=== PATIENT | female | born 2000 | race African-American/Black ===

== ENCOUNTER 2024-08-19 18:00 | Inpatient (IN) | payer OTHER ==
[2024-08-19] MEDS: Misoprostol 100 MCG TAB VAG SCH (18:59)
[2024-08-19] MEDS ORDERED: hydrALAZINE 20 MG/ML VIAL SLOW IVP PRN (19:45)
[2024-08-19] MEDS ORDERED: Docusate 100 MG CAP PO PRN (19:45)
[2024-08-19] MEDS ORDERED: Carboprost 250 MCG/ML AMP IM PRN (19:45)
[2024-08-19] MEDS ORDERED: Diphenoxylate HCl/Atropine Tablet PO PRN (19:45)
[2024-08-19] MEDS ORDERED: Lidocaine 1% (PF) 30 ML VIAL SC PRN (19:45)
[2024-08-19] MEDS ORDERED: Oxytocin 30 units/NS 500 ML 500 ML IV SCH (19:45)
[2024-08-19] MEDS ORDERED: Tranexamic Acid 1,000 MG/10 ML VIAL IVP PRN (19:45)
[2024-08-19] MEDS ORDERED: Misoprostol 200 MCG TAB PR PRN (19:45)
[2024-08-19] MEDS ORDERED: Promethazine HCl 25 MG/ML VIAL IM PRN (19:45)
[2024-08-19] MEDS ORDERED: Acetaminophen 500 MG TAB PO PRN (19:45)
[2024-08-19] MEDS ORDERED: Methylergonovine 0.2 MG/ML VIAL IM PRN (19:45)
[2024-08-19] MEDS: Lactated Ringer's 1,000 ML IV SCH (19:45)
[2024-08-19] MEDS: Misoprostol 100 MCG TAB ONE (19:51)
[2024-08-19] MEDS ORDERED: Nicotine 14 MG PATCH TOP SCH (20:00)
[2024-08-19 20:03] LABS: Hematocrit 34.9 % (34.9-44.5); Hemoglobin 12.2 g/dL (12.0-15.5); Mean Corpuscular Hemoglobin 32.8 pg (27.0-33.0); Mean Corpuscular Volume 93.8 fL (81.6-98.3); Mean Platelet Volume 10.8 fL (7.4-10.4); Platelet Count 221 10x3/uL (150-450); RBC Distribution Width 12.8 % (11.5-14.5); Red Blood Cell (RBC) Count 3.72 10x6/uL (3.90-5.03); White Blood Cell (WBC) Count 7.1 10x3/uL (3.5-10.5)
[2024-08-19 21:40] LABS: HBsAg Index 0.19 S/CO (0-0.99); Hep B Surf Ag - L&D Non-Reactive S/CO (NonReactive); Syphilis Antibody Nonreactive (Nonreactive); Syphilis Antibody Index 0.03 S/CO (<1.00 Non-Reactive)
[2024-08-20] MEDS: fentaNYL 50 mcg/mL 1 mL Vial SLOW IVP PRN (02:27)
[2024-08-20] MEDS: Ondansetron PF 4 MG/2 ML Vial IVP PRN (03:52)
[2024-08-20] MEDS ORDERED: Lactated Ringer's 500 ML IV PRN (04:17)
[2024-08-20] MEDS ORDERED: ePHEDrine Sulfate 50 MG/10 ML VIAL SLOW IVP PRN (04:17)
[2024-08-20] MEDS ORDERED: Promethazine HCl 25 MG/ML VIAL IM PRN ×2 (04:17→06:23)
[2024-08-20] MEDS ORDERED: Naloxone HCl 0.4 mg/ml Vial IVP PRN ×4 (04:17→06:23)
[2024-08-20] MEDS ORDERED: Ondansetron PF 4 MG/2 ML Vial IVP PRN ×3 (04:17→06:23)
[2024-08-20] MEDS ORDERED: Moisturizing Cream (Eucerin) 113 GM JAR TOP PRN ×2 (04:17→06:23)
[2024-08-20] MEDS ORDERED: diphenhydrAMINE 50 MG/ML VIAL IVP PRN ×2 (04:17→06:23)
[2024-08-20] MEDS ORDERED: fentaNYL 2 mcg/Ropivacaine 0.2% Epidural 100 ML CADD EPIDURAL SCH (04:30)
[2024-08-20] MEDS ORDERED: Communication Order-Pharmacy FS SCH ×2 (04:30→06:30)
[2024-08-20] MEDS ORDERED: Morphine 4 MG/ML VIAL SLOW IVP PRN (06:23)
[2024-08-20] MEDS ORDERED: Meperidine HCl/PF 25 MG (1 mL) VIAL SLOW IVP PRN (06:23)
[2024-08-20] MEDS ORDERED: Naloxone HCl 0.4 mg/ml Vial IV PRN (06:23)
[2024-08-20] MEDS ORDERED: fentaNYL 50 mcg/mL 1 mL Vial SLOW IVP PRN (06:23)
[2024-08-20] MEDS ORDERED: Ketorolac Tromethamine 30 MG (1 mL) VIAL IVP SCH (06:30)
[2024-08-20 06:31] VITALS: BMI 34.7
[2024-08-20] MEDS ORDERED: hydrALAZINE 20 MG/ML VIAL SLOW IVP PRN (07:14)
[2024-08-20] MEDS: Oxytocin 30 units/NS 500 ML 500 ML IV SCH (08:03)
[2024-08-20] MEDS: fentaNYL/Ropivacaine Epidural 100 ML ONE (09:14)
[2024-08-20] MEDS: Lidocaine 2% MPF 10 ML AMP (For Epidural Use) ONE (09:15)
[2024-08-20] MEDS: Morphine PF 10 MG/10 ML VIAL ONE (09:15)
[2024-08-20] MEDS: CEFAZOLIN 2 GM VIAL ONE (09:15)
[2024-08-20] MEDS: PHENYLEPHRINE-NS 100 MCG/ML 10 ML SYRINGE ONE ×2 (09:15→09:16)
[2024-08-20] MEDS: Ondansetron PF 4 MG/2 ML Vial ONE (09:15)
[2024-08-20] MEDS: Azithromycin 500 MG VIAL ONE (09:15)
[2024-08-20] MEDS: ePHEDrine Sulfate 50 MG/10 ML VIAL ONE (09:15)
[2024-08-20] MEDS: Oxytocin 10 UNITS/ML VIAL ONE ×2 (09:16)
[2024-08-20] MEDS: Promethazine HCl 25 MG/ML VIAL ONE (09:16)
[2024-08-20] MEDS: Ketorolac Tromethamine 30 MG (1 mL) VIAL ONE (09:16)
[2024-08-20] MEDS: Boostrix 0.5 ML (Tdap) VIAL (>/=7 yrs of age) IM ONE (09:16)
[2024-08-20] MEDS: Ferrous Sulfate 325 MG TAB PO SCH (09:19)
[2024-08-20] MEDS: Acetaminophen 325 MG TAB PO PRN (10:03)
[2024-08-20] MEDS: Simethicone Chewable 80 MG TAB PO PRN (10:04)
[2024-08-20] MEDS: Ketorolac Tromethamine 30 MG (1 mL) VIAL IVP PRN (12:21)
[2024-08-20] MEDS ORDERED: HYDROcodone/Acetaminophen 5/325 mg Tablet PO PRN (22:55)
[2024-08-21 04:09] LABS: Hematocrit 31.5 % (34.9-44.5); Hemoglobin 10.4 g/dL (12.0-15.5); Mean Corpuscular Hemoglobin 31.8 pg (27.0-33.0); Mean Corpuscular Volume 96.3 fL (81.6-98.3); Mean Platelet Volume 10.1 fL (7.4-10.4); Platelet Count 167 10x3/uL (150-450); RBC Distribution Width 13.1 % (11.5-14.5); Red Blood Cell (RBC) Count 3.27 10x6/uL (3.90-5.03); White Blood Cell (WBC) Count 8.9 10x3/uL (3.5-10.5)
[2024-08-21 05:29] LABS: #Basophils 0.03 10x3/uL (0.0-0.2); #Eosinophils 0.08 10x3/uL (0.0-0.5); #Monocytes 0.87 10x3/uL (0.0-1.1); #Neutrophils 5.47 10x3/uL (1.5-8.4); %Basophils 0.4 % (0.0-2.0); %Neutrophils 69.1 % (40.0-75.0); Hematocrit 30.4 % (34.9-44.5); Hemoglobin 10.5 g/dL (12.0-15.5); Mean Corpuscular HGB CONC 34.5 g/dL (32.0-36.0); Mean Corpuscular Hemoglobin 33.4 pg (27.0-33.0); Mean Corpuscular Volume 96.8 fL (81.6-98.3); Mean Platelet Volume 10.5 fL (7.4-10.4); Platelet Count 172 10x3/uL (150-450); RBC Distribution Width 13.2 % (11.5-14.5); Red Blood Cell (RBC) Count 3.14 10x6/uL (3.90-5.03); White Blood Cell (WBC) Count 7.9 10x3/uL (3.5-10.5)
[2024-08-21] MEDS: HYDROcodone/Acetaminophen 5/325 mg Tablet PO PRN (10:37)
[2024-08-21] MEDS: Ibuprofen 800 MG TAB PO SCH (13:43)
[2024-08-22 08:11] VITALS: BP 129/84; TEMP 97.7
== END 2024-08-22 13:35 | disposition home or self-care (01) | DRG 788 ==
LOC: CSHLD 18:12 → CSHPP 08-20 08:40
PROVIDERS: ADMIT Family Medicine; ATTEND Family Medicine
PROC: 10D00Z1 Extraction of Products of Conception, Low, Open Approach (ICD-10-PCS; principal; 2024-08-20)
DX: O48.0 Post-term pregnancy (principal); O99.03 Anemia complicating the puerperium; D50.9 Iron deficiency anemia, unspecified; Z37.0 Single live birth; Z3A.40 40 weeks gestation of pregnancy; Z79.899 Other long term (current) drug therapy; O76 Abnormality in fetal heart rate and rhythm complicating labor and delivery; O77.0 Labor and delivery complicated by meconium in amniotic fluid
CPT/HCPCS: 36415; 51702; 85027; 86780; 86850; 86900; 86901; 87340; J1885; J2274; J2405; J2550; J2590; J3010; J7120